=== PATIENT | male | born 1965 | race Two or more races ===

== ENCOUNTER 2018-01-26 15:00 | Emergency (ER) | payer BC, OTHER ==
[2018-01-26] MEDS ORDERED: Acetaminophen TAB* 325 MG PO ONE (15:23)
[2018-01-26] MEDS ORDERED: Naproxen TAB* 250 MG PO ONE (15:24)
--- NOTE | 2018-01-26 16:19 | RAD ---
INDICATION: Left third digit pain COMPARISON: None TECHNIQUE: AP, lateral, and oblique views were obtained. FINDINGS: The bony structures, joint spaces, and soft tissues are normal for age. IMPRESSION: NEGATIVE EXAMINATION.
--- NOTE | 2018-01-26 16:48 | UC ---
FLU HPI - HPI Summary HPI Summary: 52 yo HM c/o fever chills and body aches since yesterday but in UC HR was found to be 140's, EKG done which was neg for STT changes, Sinus tachy at 127. Febrile to temp 101, gave Naproxen and Tylenol, and HR came down - History of Current Complaint Chief Complaint: UCRespiratory Stated Complaint: COUGH, AND CHILLS Time Seen by Provider: 01/26/18 15:27 Hx Obtained From: Patient Onset/Duration: Sudden Onset, Lasting Hours Severity Currently: Moderate Severity Initially: Moderate Pain Intensity: 6 Associated Signs & Symptoms: Positive: Fever, Myalgia - Allergy/Home Medications Allergies/Adverse Reactions: Allergies Allergy/AdvReac Type Severity Reaction Status Date / Time No Known Allergies Allergy Verified 01/22/14 09:04 Home Medications: Home Medications Calcium Polycarbophil [Fiber Laxative] 625 mg PO DAILY 01/26/18 [History Confirmed 01/26/18] PMH/Surg Hx/FS Hx/Imm Hx Previously Healthy: Yes - Surgical History Surgical History: Yes Surgery Procedure, Year, and Place: right ankle fracture repair. tonsilectomy. ear surgery - Social History Alcohol Use: Occasionally Substance Use Type: None Smoking Status (MU): Never Smoked Tobacco Have You Smoked in the Last Year: No Review of Systems Constitutional: Fever, Chills Skin: Negative Eyes: Negative ENT: Negative Respiratory: Negative Cardiovascular: Negative Gastrointestinal: Negative Genitourinary: Negative Motor: Negative Neurovascular: Negative Musculoskeletal: Myalgia Neurological: Negative Psychological: Negative Is Patient Immunocompromised?: No All Other Systems Reviewed And Are Negative: Yes Physical Exam Triage Information Reviewed: Yes Vital Signs: Initial Vital Signs Temp 38.6 C 01/26/18 15:13 Pulse 141 01/26/18 15:13 Resp 20 01/26/18 15:13 BP 117/77 01/26/18 15:13 Pulse Ox 95 01/26/18 15:13 Vital Signs Reviewed: Yes Eye Exam: Normal ENT Exam: Normal Dental Exam: Normal Neck exam: Normal Neck: Positive: 1 Respiratory Exam: Normal Cardiovascular Exam: Normal Abdominal Exam: Normal Musculoskeletal Exam: Normal Neurological Exam: Normal Psychological Exam: Normal Skin Exam: Normal Flu Course/Dx - Course Course Of Treatment: Rapid flu and rapid strep neg, but still displays signs of acute influenza, will d/c home on Tamiflu - Differential Dx/Diagnosis Provider Diagnoses: FLu like illness. Viral syndrome Discharge - Sign-Out/Discharge Documenting (check all that apply): Discharge - Discharge Plan Condition: Stable Disposition: HOME Prescriptions: Oseltamivir CAP* [Tamiflu CAP*] 75 mg PO BID 5 Days #10 cap Patient Education Materials: Viral Syndrome (ED) Forms: *Work Release Referrals: No Primary Care Phys,NOPCP [Primary Care Provider] - - Billing Disposition and Condition Condition: STABLE Disposition: HOME
[2018-01-26 17:12] VITALS: BP 140/78
== END 2018-01-26 16:50 | disposition home or self-care (01) ==
LOC: UCEAST 15:00
DX: J11.1 Influenza due to unidentified influenza virus with other respiratory manifestations (principal); B34.9 Viral infection, unspecified
CPT/HCPCS: 87502; 87651; 93005; 99212; A9270-GY; G0463